=== PATIENT | female | born 2005 | race Caucasian/White ===

== ENCOUNTER 2024-03-27 12:53 | Emergency (ER) | payer MEDICAID ==
[~2024-03-27] VITALS: Ht 160 cm; Wt 63.6 kg
[2024-03-27 13:06] VITALS: BP 99/68; PULSE 71; RESP 16; TEMP 98.3; O2SAT 98
[2024-03-27] MEDS ORDERED: BACI28.410 TP (15:22)
[2024-03-27] MEDS ORDERED: ACET-2080 PO (15:22)
[2024-03-27] MEDS ORDERED: IBUP-1554 PO (15:22)
[2024-03-27] MEDS: ACETAMINOPHEN/CODEINE 300-30 MG TABLET PO ONE (15:29)
[2024-03-27] MEDS: IBUPROFEN 600 MG TABLET PO ONE (15:30)
[2024-03-27] MEDS: BACITRACIN 0.9 GM PACKET OINTMENT TP ONE (15:30)
== END 2024-03-27 16:01 | disposition home or self-care (01) ==
LOC: EMS 12:53
DX: S61.210A Laceration without foreign body of right index finger without damage to nail, initial encounter (principal); S60.021A Contusion of right index finger without damage to nail, initial encounter; W23.0XXA Caught, crushed, jammed, or pinched between moving objects, initial encounter; Y93.89 Activity, other specified; Y92.89 Other specified places as the place of occurrence of the external cause; Y99.8 Other external cause status
CPT/HCPCS: 29280; 99284; 73140-TC; Z7502; Z7610